=== PATIENT | male | born 1960 | race African-American/Black ===

== ENCOUNTER 2023-09-13 11:40 | Inpatient (IN) | payer OTHER ==
[2023-09-13 12:12] VITALS: BMI 22.9
[2023-09-13 16:57] LABS: BASO % 0.4 % (0-2.0); EOS % 3.9 % (0-4.5); HEMATOCRIT 31.2 % (35.4-49); HEMOGLOBIN 10.4 GM/dL (11.7-16.9); LYMPH % 10.6 % (8-40); MCH 31.1 pg (25.7-33.7); MCHC 33.2 g/dl (32.0-35.9); MEAN CELL VOLUME 93.6 fl (80-96); MEAN PLT VOLUME 7.9 fl (7.5-11.1); MONO % 10.4 % (3.8-10.2); NEUT % 74.7 % (42.8-82.8); PLATELET COUNT 353 10^3/uL (134-434); RBC 3.33 M/mm3 (4.00-5.60); RDW 13.8 % (11.9-15.9); WHITE BLOOD COUNT 6.9 K/mm3 (4.0-10.0)
[2023-09-13 17:06] LABS: ALBUMIN 2.6 g/dl (3.4-5.0); CALCIUM 8.8 mg/dL (8.5-10.1); POTASSIUM 4.1 mmol/L (3.5-5.1)
[2023-09-13 17:07] LABS: BLOOD UREA NITROGEN 10.8 mg/dL (7-18)
[2023-09-13 17:09] LABS: CREATININE 0.7 mg/dL (0.55-1.3)
[2023-09-13 17:11] LABS: BILIRUBIN,TOTAL 0.3 mg/dL (0.2-1); TOT PROT 7.1 g/dl (6.4-8.2)
[2023-09-13 17:40] LABS: ERYTHROCYTE SEDIMENTATION RATE 96 mm/hr (0-20)
[2023-09-13] MEDS ORDERED: PIPERACILLIN/TAZOB 3.375 GM 3.375 GM/50 ML BAG IVPB ONE (20:24)
[2023-09-13] MEDS ORDERED: VANCOMYCIN 1 GRAM (PRE-DOCKED) 1,000 MG/250 ML BAG IVPB ONE (20:24)
[2023-09-13] MEDS: PIPERACILLIN/TAZOB 3.375 GM 3.375 GM in DEXTROSE 5%-WATER - 50 ML IVPB ONE (20:35)
[2023-09-13] MEDS ORDERED: ACETAMINOPHEN INJECTION 100 ML IVPB ONE (21:13)
[2023-09-13] MEDS: ACETAMINOPHEN 1000 MG/100 ML BAG IVPB ONE (21:37)
[2023-09-13] MEDS: VANCOMYCIN 1,000 MG in DEXTROSE 5%-WATER - 250 ML IVPB ONE (22:17)
[2023-09-14] MEDS: ACETAMINOPHEN 1000 MG/100 ML BAG IVPB ONE (04:57)
[2023-09-14 06:59] LABS: BASO % 0.8 % (0-2.0); EOS % 8.3 % (0-4.5); HEMATOCRIT 31.2 % (35.4-49); HEMOGLOBIN 10.2 GM/dL (11.7-16.9); LYMPH % 15.1 % (8-40); MCHC 32.7 g/dl (32.0-35.9); MEAN CELL VOLUME 94.8 fl (80-96); MEAN PLT VOLUME 8.1 fl (7.5-11.1); MONO % 12.4 % (3.8-10.2); NEUT % 63.4 % (42.8-82.8); PLATELET COUNT 347 10^3/uL (134-434); RDW 13.6 % (11.9-15.9)
[2023-09-14] MEDS ORDERED: METHADONE 1 MG/ML PO SCH (07:00)
[2023-09-14 07:14] LABS: POTASSIUM 4.2 mmol/L (3.5-5.1)
[2023-09-14 07:17] LABS: CALCIUM 8.4 mg/dL (8.5-10.1)
[2023-09-14 07:19] LABS: ALBUMIN 2.4 g/dl (3.4-5.0); BLOOD UREA NITROGEN 12.8 mg/dL (7-18); MAGNESIUM 1.7 mg/dL (1.8-2.4)
[2023-09-14 07:21] LABS: CREATININE 0.6 mg/dL (0.55-1.3); PHOSPHOROUS 3.1 mg/dL (2.5-4.9)
[2023-09-14 07:22] LABS: TOT PROT 6.8 g/dl (6.4-8.2)
[2023-09-14 07:23] LABS: BILIRUBIN,TOTAL 0.3 mg/dL (0.2-1)
[2023-09-14] MEDS ORDERED: methaDONE HCL 40 MG DISPERSABLE TABLET ONE (10:07)
[2023-09-14] MEDS ORDERED: methaDONE HCL 10 MG TABLET ONE (10:08)
[2023-09-14] MEDS: MAGNESIUM 2GM/50ML STERILE WATER IVPB IVPB ONE (16:05)
[2023-09-14] MEDS: VANCOMYCIN/WATER FOR INJ (PEG) 1,000 MG/200 ML BAG IVPB SCH (19:48)
[2023-09-14] MEDS: CEFTRIAXONE 1 GM in DEXTROSE 5%-WATER - 50 ML IVPB SCH (21:46)
[2023-09-15] MEDS ORDERED: PIPERACILLIN/TAZOB 3.375 GM 3.375 GM in DEXTROSE 5%-WATER - 50 ML IVPB SCH (11:45)
[2023-09-15 11:47] LABS: HIV INTERPRETATION NEGATIVE (NEGATIVE)
[2023-09-15] MEDS: PIPERACILLIN/TAZOB 4.5 GM 4.5 GM in DEXTROSE 5%-WATER 100 ML IVPB SCH (14:12)
[2023-09-15] MEDS: DAPTOMYCIN 450 MG in SODIUM CHLORIDE 50 ML IVPB SCH (16:19)
[2023-09-16 10:25] LABS: HEMATOCRIT 35.5 % (35.4-49); HEMOGLOBIN 11.8 GM/dL (11.7-16.9); MCH 31.5 pg (25.7-33.7); MCHC 33.4 g/dl (32.0-35.9); MEAN CELL VOLUME 94.3 fl (80-96); MEAN PLT VOLUME 8.1 fl (7.5-11.1); PLATELET COUNT 438 10^3/uL (134-434); RBC 3.76 M/mm3 (4.00-5.60); RDW 13.6 % (11.9-15.9); WHITE BLOOD COUNT 4.7 K/mm3 (4.0-10.0)
[2023-09-16 10:59] LABS: CALCIUM 9.2 mg/dL (8.5-10.1)
[2023-09-16 11:00] LABS: ALBUMIN 2.8 g/dl (3.4-5.0); MAGNESIUM 1.9 mg/dL (1.8-2.4)
[2023-09-16 11:01] LABS: CREATININE 0.7 mg/dL (0.55-1.3); PHOSPHOROUS 3.7 mg/dL (2.5-4.9)
[2023-09-16 11:02] LABS: BILIRUBIN,TOTAL 0.5 mg/dL (0.2-1)
[2023-09-16 11:12] LABS: ERYTHROCYTE SEDIMENTATION RATE 90 mm/hr (0-20)
[2023-09-17] MEDS: ACETAMINOPHEN 1000 MG/100 ML BAG IVPB ONE (00:50)
[2023-09-17 08:31] LABS: HEMATOCRIT 31.1 % (35.4-49); HEMOGLOBIN 10.6 GM/dL (11.7-16.9); MCH 31.5 pg (25.7-33.7); MEAN CELL VOLUME 92.7 fl (80-96); MEAN PLT VOLUME 7.8 fl (7.5-11.1); PLATELET COUNT 406 10^3/uL (134-434); RBC 3.36 M/mm3 (4.00-5.60); WHITE BLOOD COUNT 4.2 K/mm3 (4.0-10.0)
[2023-09-17 08:43] LABS: POTASSIUM 4.5 mmol/L (3.5-5.1)
[2023-09-17 08:49] LABS: CALCIUM 8.6 mg/dL (8.5-10.1)
[2023-09-17 08:50] LABS: ALBUMIN 2.5 g/dl (3.4-5.0); BLOOD UREA NITROGEN 23.5 mg/dL (7-18)
[2023-09-17 08:53] LABS: CREATININE 0.8 mg/dL (0.55-1.3); PHOSPHOROUS 3.3 mg/dL (2.5-4.9)
[2023-09-17 08:54] LABS: BILIRUBIN,TOTAL 0.3 mg/dL (0.2-1)
[2023-09-17 08:55] LABS: TOT PROT 6.9 g/dl (6.4-8.2)
[2023-09-17 09:19] LABS: ERYTHROCYTE SEDIMENTATION RATE 63 mm/hr (0-20)
[2023-09-17] MEDS: ACETAMINOPHEN 500 MG TABLET (FP) PO PRN (09:59)
[2023-09-17] MEDS: HEPARIN NA (PORCINE) 5,000 UNITS/ML 1ML VIAL SQ SCH (22:03)
[2023-09-18 09:45] LABS: BASO % 2.2 % (0-2.0); EOS % 8.8 % (0-4.5); HEMOGLOBIN 11.1 GM/dL (11.7-16.9); LYMPH % 16.4 % (8-40); MCH 31.1 pg (25.7-33.7); MCHC 32.8 g/dl (32.0-35.9); MEAN CELL VOLUME 94.9 fl (80-96); MEAN PLT VOLUME 7.9 fl (7.5-11.1); MONO % 10.9 % (3.8-10.2); NEUT % 61.7 % (42.8-82.8); PLATELET COUNT 421 10^3/uL (134-434); RBC 3.58 M/mm3 (4.00-5.60); WHITE BLOOD COUNT 4.1 K/mm3 (4.0-10.0)
[2023-09-18 09:46] LABS: POTASSIUM 4.5 mmol/L (3.5-5.1)
[2023-09-18 09:47] LABS: HEMATOCRIT 34.1 % (35.4-49); HEMOGLOBIN 11.2 GM/dL (11.7-16.9); MCH 31.2 pg (25.7-33.7); MCHC 32.9 g/dl (32.0-35.9); MEAN PLT VOLUME 7.9 fl (7.5-11.1); PLATELET COUNT 424 10^3/uL (134-434); RBC 3.59 M/mm3 (4.00-5.60); RDW 13.6 % (11.9-15.9); WHITE BLOOD COUNT 4.1 K/mm3 (4.0-10.0)
[2023-09-18 09:58] LABS: BLOOD UREA NITROGEN 22.8 mg/dL (7-18); CALCIUM 9.3 mg/dL (8.5-10.1); MAGNESIUM 1.9 mg/dL (1.8-2.4)
[2023-09-18 10:00] LABS: PHOSPHOROUS 3.2 mg/dL (2.5-4.9)
[2023-09-18 10:01] LABS: BILIRUBIN,TOTAL 0.4 mg/dL (0.2-1); CREATININE 0.9 mg/dL (0.55-1.3)
[2023-09-18 10:02] LABS: TOT PROT 7.5 g/dl (6.4-8.2)
[2023-09-18 10:21] LABS: ALBUMIN 3.1 g/dl (3.4-5.0)
[2023-09-18 10:46] LABS: ERYTHROCYTE SEDIMENTATION RATE 75 mm/hr (0-20)
[2023-09-19 08:46] LABS: BASO % 2.4 % (0-2.0); EOS % 13.1 % (0-4.5); HEMATOCRIT 32.3 % (35.4-49); HEMOGLOBIN 10.6 GM/dL (11.7-16.9); LYMPH % 23.2 % (8-40); MCH 31.4 pg (25.7-33.7); MCHC 32.9 g/dl (32.0-35.9); MEAN CELL VOLUME 95.6 fl (80-96); MONO % 14.2 % (3.8-10.2); NEUT % 47.1 % (42.8-82.8); PLATELET COUNT 398 10^3/uL (134-434); RBC 3.38 M/mm3 (4.00-5.60); RDW 13.7 % (11.9-15.9); WHITE BLOOD COUNT 4.1 K/mm3 (4.0-10.0)
[2023-09-19 09:04] LABS: POTASSIUM 4.6 mmol/L (3.5-5.1)
[2023-09-19 09:11] LABS: ALBUMIN 2.9 g/dl (3.4-5.0); BLOOD UREA NITROGEN 21.4 mg/dL (7-18)
[2023-09-19 09:14] LABS: CREATININE 0.9 mg/dL (0.55-1.3)
[2023-09-19 09:16] LABS: BILIRUBIN,TOTAL 0.3 mg/dL (0.2-1); TOT PROT 7.4 g/dl (6.4-8.2)
[2023-09-20 09:06] LABS: BASO % 2.3 % (0-2.0); EOS % 12.9 % (0-4.5); HEMATOCRIT 30.4 % (35.4-49); HEMOGLOBIN 9.9 GM/dL (11.7-16.9); MCH 31.2 pg (25.7-33.7); MCHC 32.6 g/dl (32.0-35.9); MEAN CELL VOLUME 95.5 fl (80-96); MEAN PLT VOLUME 8.1 fl (7.5-11.1); MONO % 14.4 % (3.8-10.2); NEUT % 48.4 % (42.8-82.8); PLATELET COUNT 355 10^3/uL (134-434); RBC 3.18 M/mm3 (4.00-5.60); RDW 14.1 % (11.9-15.9); WHITE BLOOD COUNT 4.4 K/mm3 (4.0-10.0)
[2023-09-20 09:12] LABS: POTASSIUM 4.7 mmol/L (3.5-5.1)
[2023-09-20 09:17] LABS: ALBUMIN 2.7 g/dl (3.4-5.0); BLOOD UREA NITROGEN 23.3 mg/dL (7-18); MAGNESIUM 1.9 mg/dL (1.8-2.4)
[2023-09-20 09:21] LABS: BILIRUBIN,TOTAL 0.3 mg/dL (0.2-1)
[2023-09-20 09:22] LABS: TOT PROT 6.8 g/dl (6.4-8.2)
[2023-09-20] MEDS: MEROPENEM 1 GM in DEXTROSE 5%-WATER 100 ML IVPB SCH (19:04)
[2023-09-21 07:22] LABS: BASO % 2.3 % (0-2.0); EOS % 11.7 % (0-4.5); HEMOGLOBIN 10.9 GM/dL (11.7-16.9); LYMPH % 23.6 % (8-40); MCH 30.9 pg (25.7-33.7); MCHC 32.1 g/dl (32.0-35.9); MEAN CELL VOLUME 96.3 fl (80-96); MEAN PLT VOLUME 7.9 fl (7.5-11.1); MONO % 13.6 % (3.8-10.2); NEUT % 48.8 % (42.8-82.8); PLATELET COUNT 381 10^3/uL (134-434); RBC 3.53 M/mm3 (4.00-5.60); RDW 14.4 % (11.9-15.9); WHITE BLOOD COUNT 4.6 K/mm3 (4.0-10.0)
[2023-09-21 07:42] LABS: INR 0.91 (0.83-1.09); PROTHROMBIN TIME (PATIENT) 10.5 SEC (9.7-13.0)
[2023-09-21 07:46] LABS: POTASSIUM 4.5 mmol/L (3.5-5.1)
[2023-09-21 07:55] LABS: CALCIUM 9.4 mg/dL (8.5-10.1)
[2023-09-21 07:56] LABS: BLOOD UREA NITROGEN 24.8 mg/dL (7-18)
[2023-09-21 07:59] LABS: CREATININE 0.9 mg/dL (0.55-1.3); TOT PROT 7.5 g/dl (6.4-8.2)
[2023-09-21 08:00] LABS: BILIRUBIN,TOTAL 0.3 mg/dL (0.2-1)
[2023-09-21 11:28] VITALS: BP 100/60; PULSE 78; RESP 18; TEMP 98.4
== END 2023-09-21 13:19 | DRG 540 ==
LOC: JER 11:40 → JERBED 15:45 → J5S 09-14 10:51 → J8W 09-15 23:26
PROVIDERS: ADMIT Internal Medicine; ATTEND Nurse Practitioner Acute Care
DX: M86.8X7 Other osteomyelitis, ankle and foot (principal); E44.0 Moderate protein-calorie malnutrition; F11.20 Opioid dependence, uncomplicated; Z59.00 Homelessness unspecified; L97.319 Non-pressure chronic ulcer of right ankle with unspecified severity; I73.9 Peripheral vascular disease, unspecified; D50.9 Iron deficiency anemia, unspecified; F39 Unspecified mood [affective] disorder; Z68.23 Body mass index [BMI] 23.0-23.9, adult
CPT/HCPCS: 36415; 71045-TC-FY; 73721-RT-TC; 80053; 82550; 82728; 82962; 83036; 83540; 83550; 83735; 84100; 84466; 85025; 85027; 85045; 85610; 85651; 86140; 86705; 86708; 86803; 87070; 87077; 87081; 87186; 87205; 87340; 87389; 87517; 87635; 93005; 93010; 93926-TC; 97116-GP; 97161-GP; 99285-25; G0463-25; J0131; J0878; J1644

== ENCOUNTER 2023-12-04 14:06 | Inpatient (IN) | payer OTHER ==
[2023-12-04 15:10] LABS: BASO % 0.8 % (0-2.0); EOS % 8.4 % (0-4.5); HEMATOCRIT 37.3 % (35.4-49); HEMOGLOBIN 11.9 GM/dL (11.7-16.9); LYMPH % 25.2 % (8-40); MCHC 31.9 g/dl (32.0-35.9); MEAN PLT VOLUME 8.3 fl (7.5-11.1); MONO % 11.6 % (3.8-10.2); PLATELET COUNT 248 10^3/uL (134-434); RBC 3.97 M/mm3 (4.00-5.60); RDW 15.2 % (11.9-15.9); WHITE BLOOD COUNT 4.1 K/mm3 (4.0-10.0)
[2023-12-04 15:16] LABS: INR 0.95 (0.83-1.09); PROTHROMBIN TIME (PATIENT) 10.7 SEC (9.7-13.0)
[2023-12-04 15:19] LABS: ACTIVATED PTT 31.6 SECONDS (25.2-36.5)
[2023-12-04 15:31] LABS: POTASSIUM 4.1 mmol/L (3.5-5.1)
[2023-12-04 15:33] LABS: CALCIUM 8.8 mg/dL (8.5-10.1)
[2023-12-04 15:34] LABS: ALBUMIN 3.1 g/dl (3.4-5.0); BLOOD UREA NITROGEN 13.7 mg/dL (7-18)
[2023-12-04 15:37] LABS: CREATININE 0.8 mg/dL (0.55-1.3)
[2023-12-04 15:38] LABS: BILIRUBIN,TOTAL 0.3 mg/dL (0.2-1)
[2023-12-04 15:39] LABS: TOT PROT 7.3 g/dl (6.4-8.2)
[2023-12-04 15:50] LABS: ERYTHROCYTE SEDIMENTATION RATE 25 mm/hr (0-20)
[2023-12-04] MEDS ORDERED: PIPERACILLIN/TAZOB 3.375 GM 3.375 GM/50 ML BAG IVPB ONE (16:28)
[2023-12-04] MEDS: PIPERACILLIN/TAZOB 3.375 GM 3.375 GM in DEXTROSE 5%-WATER - 50 ML IVPB SCH ×2 (16:43→22:42)
[2023-12-04] MEDS ORDERED: VANCOMYCIN 1 GRAM (PRE-DOCKED) 1,000 MG/250 ML BAG IVPB ONE (16:46)
[2023-12-04] MEDS: VANCOMYCIN 1,000 MG in DEXTROSE 5%-WATER - 250 ML IVPB ONE (16:54)
[2023-12-04] MEDS: SODIUM HYPOCHLORITE 0.25%- 473 ML BULK BOTTLE TP SCH (19:30)
[2023-12-04 22:27] VITALS: BMI 21.9
[2023-12-05] MEDS: ACETAMINOPHEN 1000 MG/100 ML BAG IVPB ONE (02:20)
[2023-12-05] MEDS ORDERED: METHADONE 1 MG/ML PO SCH (07:00)
[2023-12-05] MEDS ORDERED: ENOXAPARIN NA (PORCINE) 40 MG/0.4 ML DISP.SYRIN SQ SCH (10:00)
[2023-12-05] MEDS: VANCOMYCIN/WATER 1250 MG 1,250 MG/250 ML BAG IVPB SCH (13:28)
[2023-12-05] MEDS ORDERED: PIPERACILLIN/TAZOB 3.375 GM 3.375 GM in DEXTROSE 5%-WATER - 50 ML IVPB SCH (15:00)
[2023-12-05] MEDS: PIPERACILLIN/TAZOB 3.375 GM 3.375 GM in DEXTROSE 5%-WATER - 50 ML IVPB SCH (18:05)
[2023-12-06] MEDS: ENOXAPARIN NA (PORCINE) 40 MG/0.4 ML DISP.SYRIN SQ SCH (08:22)
[2023-12-06] MEDS ORDERED: MIDAZOLAM HCL 2 MG/2 ML SINGLE DOSE VIAL ONE (11:00)
[2023-12-06] MEDS ORDERED: ONDANSETRON 4 MG/2 ML VIAL ONE (11:05)
[2023-12-06] MEDS ORDERED: METOCLOPRAMIDE HCL INJECTION 10 MG/2 ML VIAL ONE (11:05)
[2023-12-06] MEDS: LIDOCAINE HCL 1%, 10 MG/ML (50 mL VIAL) INF ONE ×2 (11:10)
[2023-12-06] MEDS ORDERED: ACETAMINOPHEN INJECTION 100 ML ONE (11:27)
[2023-12-06] MEDS ORDERED: HEPARIN NA (PORCINE) 5,000 UNITS/ML 1ML VIAL ONE ×2 (11:33→11:34)
[2023-12-06] MEDS ORDERED: NITROGLYCERIN 50 MG/10 ML VIAL IVPB ONE (11:43)
[2023-12-06] MEDS ORDERED: ONDANSETRON 4 MG/2 ML VIAL IVPUSH PRN ×2 (11:47→13:14)
[2023-12-06] MEDS ORDERED: LACTATED RINGERS SOLUTION 1,000 ML IV SCH ×2 (12:00→13:14)
[2023-12-06] MEDS ORDERED: PROTAMINE SULFATE 50 MG/5 ML VIAL ONE (12:21)
[2023-12-06] MEDS: ASPIRIN 81 MG CHEWABLE TABLETS PO SCH (13:50)
[2023-12-06] MEDS: CLOPIDOGREL BISULFATE 75 MG TABLET (FP) PO SCH (13:50)
[2023-12-06] MEDS: VANCOMYCIN/WATER 1250 MG 1,250 MG/250 ML BAG IVPB SCH (13:58)
[2023-12-06] MEDS: PIPERACILLIN/TAZOB 3.375 GM 3.375 GM in DEXTROSE 5%-WATER - 50 ML IVPB SCH (17:12)
[2023-12-06] MEDS ORDERED: PIPERACILLIN/TAZOB 3.375 GM 3.375 GM in DEXTROSE 5%-WATER - 50 ML IVPB SCH (18:00)
[2023-12-07] MEDS ORDERED: VANCOMYCIN 1,000 MG VIAL (RESTRICTED TO ID ONLY) ONE (08:51)
[2023-12-07 09:13] LABS: BASO % 0.4 % (0-2.0); EOS % 2.8 % (0-4.5); HEMATOCRIT 39.3 % (35.4-49); LYMPH % 16.8 % (8-40); MCH 30.2 pg (25.7-33.7); MCHC 33.2 g/dl (32.0-35.9); MEAN CELL VOLUME 91.1 fl (80-96); MEAN PLT VOLUME 8.7 fl (7.5-11.1); MONO % 10.7 % (3.8-10.2); NEUT % 69.3 % (42.8-82.8); PLATELET COUNT 274 10^3/uL (134-434); RBC 4.32 M/mm3 (4.00-5.60); RDW 15.3 % (11.9-15.9); WHITE BLOOD COUNT 4.9 K/mm3 (4.0-10.0)
[2023-12-07 09:44] LABS: POTASSIUM 3.7 mmol/L (3.5-5.1)
[2023-12-07] MEDS ORDERED: PROPOFOL 20 ML ONE (09:53)
[2023-12-07] MEDS ORDERED: MIDAZOLAM HCL 2 MG/2 ML SINGLE DOSE VIAL ONE (09:53)
[2023-12-07 09:59] LABS: ALBUMIN 3.6 g/dl (3.4-5.0)
[2023-12-07 10:00] LABS: BILIRUBIN,TOTAL 0.4 mg/dL (0.2-1); BLOOD UREA NITROGEN 14.9 mg/dL (7-18); CALCIUM 9.2 mg/dL (8.5-10.1); MAGNESIUM 1.7 mg/dL (1.8-2.4); TOT PROT 8.1 g/dl (6.4-8.2)
[2023-12-07 10:03] LABS: CREATININE 0.9 mg/dL (0.55-1.3)
[2023-12-07] MEDS: PIPERACILLIN/TAZOBACTAM 4.5 GM VIAL IVPB ONE (10:11)
[2023-12-07] MEDS ORDERED: DEXAMETHASONE SOD PHOSPHATE 4 MG/1 ML VIAL ONE (10:16)
[2023-12-07] MEDS ORDERED: METOCLOPRAMIDE HCL INJECTION 10 MG/2 ML VIAL ONE (10:16)
[2023-12-07] MEDS: VANCOMYCIN 1,000 MG VIAL (RESTRICTED TO ID ONLY) IVPB ONE (10:23)
[2023-12-07] MEDS ORDERED: MIDAZOLAM HCL 2 MG/2 ML SINGLE DOSE VIAL IVPUSH PRN (11:06)
[2023-12-07] MEDS ORDERED: ONDANSETRON 4 MG/2 ML VIAL IVPUSH PRN (11:06)
[2023-12-07] MEDS ORDERED: VANCOMYCIN/WATER 1250 MG 1,250 MG/250 ML BAG IVPB SCH (11:45)
[2023-12-07] MEDS: VANCOMYCIN/WATER 1250 MG 1,250 MG/250 ML BAG IVPB SCH (13:51)
[2023-12-07] MEDS: SODIUM HYPOCHLORITE 0.25%- 473 ML BULK BOTTLE TP SCH (14:09)
[2023-12-07] MEDS: ENOXAPARIN NA (PORCINE) 40 MG/0.4 ML DISP.SYRIN SQ SCH (14:10)
[2023-12-07] MEDS: oxyCODONE HCL 5 MG TABLET PO PRN (15:46)
[2023-12-07] MEDS: PIPERACILLIN/TAZOB 3.375 GM 3.375 GM in DEXTROSE 5%-WATER - 50 ML IVPB SCH (18:02)
[2023-12-08] MEDS: CLOPIDOGREL BISULFATE 75 MG TABLET (FP) PO SCH (09:29)
[2023-12-08] MEDS: ASPIRIN 81 MG CHEWABLE TABLETS PO SCH (09:29)
[2023-12-08] MEDS: SODIUM HYPOCHLORITE 0.25%- 473 ML BULK BOTTLE TP SCH (09:33)
[2023-12-08] MEDS: ENOXAPARIN NA (PORCINE) 40 MG/0.4 ML DISP.SYRIN SQ SCH (09:36)
[2023-12-08 10:29] LABS: BASO % 0.5 % (0-2.0); EOS % 3.3 % (0-4.5); HEMATOCRIT 40.1 % (35.4-49); HEMOGLOBIN 13.2 GM/dL (11.7-16.9); LYMPH % 25.9 % (8-40); MCH 30.1 pg (25.7-33.7); MCHC 32.9 g/dl (32.0-35.9); MEAN CELL VOLUME 91.7 fl (80-96); MEAN PLT VOLUME 9.1 fl (7.5-11.1); MONO % 9.1 % (3.8-10.2); NEUT % 61.2 % (42.8-82.8); PLATELET COUNT 255 10^3/uL (134-434); RBC 4.38 M/mm3 (4.00-5.60); RDW 15.5 % (11.9-15.9); WHITE BLOOD COUNT 4.6 K/mm3 (4.0-10.0)
[2023-12-08 10:54] LABS: POTASSIUM 4.3 mmol/L (3.5-5.1)
[2023-12-08 10:58] LABS: ALBUMIN 3.6 g/dl (3.4-5.0); BLOOD UREA NITROGEN 16.7 mg/dL (7-18); CALCIUM 9.6 mg/dL (8.5-10.1); MAGNESIUM 1.8 mg/dL (1.8-2.4)
[2023-12-08 11:02] LABS: CREATININE 0.9 mg/dL (0.55-1.3)
[2023-12-08 11:03] LABS: BILIRUBIN,TOTAL 0.6 mg/dL (0.2-1); TOT PROT 8.2 g/dl (6.4-8.2)
[2023-12-08 14:32] VITALS: RESP 18
[2023-12-08] MEDS: oxyCODONE HCL 5 MG TABLET PO ONE (20:25)
[2023-12-09 10:49] LABS: BASO % 0.8 % (0-2.0); EOS % 8.8 % (0-4.5); HEMATOCRIT 38.6 % (35.4-49); HEMOGLOBIN 12.6 GM/dL (11.7-16.9); LYMPH % 25.9 % (8-40); MCH 29.9 pg (25.7-33.7); MCHC 32.8 g/dl (32.0-35.9); MEAN CELL VOLUME 91.3 fl (80-96); MEAN PLT VOLUME 9.1 fl (7.5-11.1); MONO % 12.4 % (3.8-10.2); NEUT % 52.1 % (42.8-82.8); PLATELET COUNT 259 10^3/uL (134-434); RBC 4.23 M/mm3 (4.00-5.60); WHITE BLOOD COUNT 3.6 K/mm3 (4.0-10.0)
[2023-12-09 11:05] LABS: POTASSIUM 4.2 mmol/L (3.5-5.1)
[2023-12-09 11:08] LABS: CALCIUM 9.6 mg/dL (8.5-10.1)
[2023-12-09 11:09] LABS: ALBUMIN 3.3 g/dl (3.4-5.0); BLOOD UREA NITROGEN 14.2 mg/dL (7-18); MAGNESIUM 1.8 mg/dL (1.8-2.4)
[2023-12-09 11:12] LABS: CREATININE 0.8 mg/dL (0.55-1.3)
[2023-12-09 11:13] LABS: BILIRUBIN,TOTAL 0.4 mg/dL (0.2-1)
[2023-12-09 11:14] LABS: TOT PROT 7.3 g/dl (6.4-8.2)
[2023-12-10 09:54] LABS: BASO % 1.2 % (0-2.0); EOS % 9.8 % (0-4.5); HEMOGLOBIN 13.2 GM/dL (11.7-16.9); LYMPH % 24.4 % (8-40); MCH 30.5 pg (25.7-33.7); MCHC 33.1 g/dl (32.0-35.9); MEAN CELL VOLUME 92.1 fl (80-96); MEAN PLT VOLUME 8.7 fl (7.5-11.1); MONO % 9.4 % (3.8-10.2); NEUT % 55.2 % (42.8-82.8); PLATELET COUNT 267 10^3/uL (134-434); RBC 4.34 M/mm3 (4.00-5.60); RDW 15.6 % (11.9-15.9); WHITE BLOOD COUNT 3.7 K/mm3 (4.0-10.0)
[2023-12-10 10:17] LABS: POTASSIUM 4.4 mmol/L (3.5-5.1)
[2023-12-10 10:19] LABS: CALCIUM 9.3 mg/dL (8.5-10.1)
[2023-12-10 10:20] LABS: ALBUMIN 3.4 g/dl (3.4-5.0); BLOOD UREA NITROGEN 15.3 mg/dL (7-18); MAGNESIUM 1.6 mg/dL (1.8-2.4)
[2023-12-10 10:24] LABS: BILIRUBIN,TOTAL 0.3 mg/dL (0.2-1); TOT PROT 7.8 g/dl (6.4-8.2)
[2023-12-10] MEDS ORDERED: ACETAMINOPHEN 325 MG TABLET (FP) PO PRN (11:52)
[2023-12-10] MEDS: ACETAMINOPHEN 325 MG TABLET (FP) PO PRN (12:10)
[2023-12-10] MEDS: oxyCODONE HCL 5 MG TABLET PO PRN (20:53)
[2023-12-11 11:13] LABS: BASO % 0.9 % (0-2.0); EOS % 9.8 % (0-4.5); HEMATOCRIT 39.1 % (35.4-49); HEMOGLOBIN 12.9 GM/dL (11.7-16.9); LYMPH % 24.2 % (8-40); MCH 30.4 pg (25.7-33.7); MEAN CELL VOLUME 92.2 fl (80-96); MONO % 9.8 % (3.8-10.2); NEUT % 55.3 % (42.8-82.8); PLATELET COUNT 261 10^3/uL (134-434); RBC 4.24 M/mm3 (4.00-5.60); RDW 15.3 % (11.9-15.9); WHITE BLOOD COUNT 3.9 K/mm3 (4.0-10.0)
[2023-12-11 11:31] LABS: POTASSIUM 4.6 mmol/L (3.5-5.1)
[2023-12-11 11:38] LABS: MAGNESIUM 1.9 mg/dL (1.8-2.4)
[2023-12-11 11:39] LABS: ALBUMIN 3.6 g/dl (3.4-5.0); CALCIUM 9.9 mg/dL (8.5-10.1)
[2023-12-11 11:40] LABS: BLOOD UREA NITROGEN 18.2 mg/dL (7-18)
[2023-12-11 11:41] LABS: CREATININE 0.9 mg/dL (0.55-1.3)
[2023-12-11 11:43] LABS: BILIRUBIN,TOTAL 0.4 mg/dL (0.2-1); TOT PROT 7.8 g/dl (6.4-8.2)
[2023-12-11 23:30] VITALS: TEMP 97.7
[2023-12-12 06:30] VITALS: BP 106/68; PULSE 71
== END 2023-12-12 13:06 | disposition home or self-care (01) | DRG 271 ==
LOC: JER 14:06 → JERBED 14:47 → J8W 20:02 → UNDODISIN 21:57
PROVIDERS: ADMIT Internal Medicine; ATTEND Nurse Practitioner Acute Care
PROC: 04CR3ZZ Extirpation of Matter from Right Posterior Tibial Artery, Percutaneous Approach (ICD-10-PCS; 2023-12-06)
PROC: 047P3ZZ Dilation of Right Anterior Tibial Artery, Percutaneous Approach (ICD-10-PCS; 2023-12-06)
PROC: 047R3ZZ Dilation of Right Posterior Tibial Artery, Percutaneous Approach (ICD-10-PCS; 2023-12-06)
PROC: 04CM3ZZ Extirpation of Matter from Right Popliteal Artery, Percutaneous Approach (ICD-10-PCS; principal; 2023-12-06 09:30)
PROC: 0LBS0ZZ Excision of Right Ankle Tendon, Open Approach (ICD-10-PCS; 2023-12-07)
PROC: 0LU Tendons, Supplement (ICD-10-PCS; 2023-12-07)
DX: I83.013 Varicose veins of right lower extremity with ulcer of ankle (principal); F11.20 Opioid dependence, uncomplicated; L97.318 Non-pressure chronic ulcer of right ankle with other specified severity; D50.9 Iron deficiency anemia, unspecified; F17.210 Nicotine dependence, cigarettes, uncomplicated; F19.10 Other psychoactive substance abuse, uncomplicated; I70.208 Unspecified atherosclerosis of native arteries of extremities, other extremity
CPT/HCPCS: 11042; 36415; 73610-TC-RT-FY; 76000-TC-FY; 80048; 80053; 83735; 85025; 85610; 85651; 85730; 86140; 86850; 86900; 86901; 87070; 87186; 87205; 88304-TC; 93005; 93010; 94760; 97116-GP; 97161-GP; 99285-25; C1769; C1894; G0480; J0131; J1644

== ENCOUNTER 2024-08-15 08:06 | Emergency (ER) | payer OTHER ==
[2024-08-15 08:14] VITALS: BP 122/68; PULSE 67; RESP 16; TEMP 97.9; BMI 21.9
[2024-08-15] MEDS ORDERED: ACETAMINOPHEN 325 MG TABLET (FP) ONE (09:31)
[2024-08-15] MEDS: ACETAMINOPHEN 325 MG TABLET (FP) PO ONE (09:41)
== END 2024-08-15 10:35 | disposition home or self-care (01) ==
LOC: JER 08:06
DX: L97.519 Non-pressure chronic ulcer of other part of right foot with unspecified severity (principal)
CPT/HCPCS: 99283-25